=== PATIENT | male | born 1940 | race Caucasian/White ===

== ENCOUNTER 2023-01-14 13:02 | Outpatient (CLI) | payer MEDICARE, BC ==
[~2023-01-14 13:02] MED LIST: Magnevist 469MG/ML 20 ML VIAL ONE
== END 2023-01-14 13:03 | disposition home or self-care (01) ==
LOC: CSHMRI 13:02
PROVIDERS: ATTEND Family Medicine
DX: R26.89 Other abnormalities of gait and mobility (principal); I63.9 Cerebral infarction, unspecified; I63.89 Other cerebral infarction; I65.03 Occlusion and stenosis of bilateral vertebral arteries; I65.22 Occlusion and stenosis of left carotid artery
CPT/HCPCS: 70544; 70549; 82565

== ENCOUNTER 2023-08-06 09:50 | Outpatient (CLI) | payer MEDICARE, BC | END 2023-08-06 09:51 | disposition home or self-care (01) | LOC: CSHMRI 09:50 | PROVIDERS: ATTEND Psychiatry & Neurology Neurology | DX: M47.26 Other spondylosis with radiculopathy, lumbar region (principal) | CPT/HCPCS: 72148 ==